=== PATIENT | female | born 2000 | race Caucasian/White ===

== ENCOUNTER 2021-03-04 14:49 | Emergency (ER) | payer SELFPAY | END 2021-03-04 15:33 | disposition home or self-care (01) | LOC: ERS 14:49 | DX: O9A.211 Injury, poisoning and certain other consequences of external causes complicating pregnancy, first trimester (principal); T63.301A Toxic effect of unspecified spider venom, accidental (unintentional), initial encounter; Z3A.09 9 weeks gestation of pregnancy | CPT/HCPCS: 99283 ==

== ENCOUNTER 2022-03-11 13:15 | Emergency (ER) | payer SELFPAY ==
[2022-03-11] MEDS ORDERED: Ondansetron ODT 4 MG TAB ONE (13:39)
[2022-03-11] MEDS ORDERED: Dexamethasone 10 MG/ML VIAL ONE (14:07)
== END 2022-03-11 14:13 | disposition home or self-care (01) ==
LOC: ERS 13:15
DX: J02.9 Acute pharyngitis, unspecified (principal)
CPT/HCPCS: 87081; 87430; 99283; J1100; Q0162